=== PATIENT | male | born 1970 | race Caucasian/White ===

== ENCOUNTER 2022-04-29 18:08 | Emergency (ER) | payer BC ==
[~2022-04-29] VITALS: Ht 167.6 cm; Wt 72.6 kg
[2022-04-29 18:14] VITALS: BP_SYST 138
[2022-04-29 19:56] LABS: BASOPHILS % (AUTO) 0.2 % (0.0-2.0); HEMATOCRIT 44.4 % (36-54); HEMOGLOBIN 15.3 g/dL (14.0-18.0); LYMPHOCYTES # (AUTO) 0.8 K/uL (1.0-5.5); LYMPHOCYTES % (AUTO) 5.1 % (20.5-51.5); MEAN CORPUSCULAR HEMOGLOBIN 31 pg (27-31); MEAN CORPUSCULAR HGB CONC 35 % (32-36); MEAN CORPUSCULAR VOLUME 91 fL (79.0-98.0); MONOCYTES # (AUTO) 0.7 K/uL (0.0-1.0); MONOCYTES % (AUTO) 4.5 % (1.7-9.3); NEUTROPHILS # (AUTO) 13.5 K/uL (1.8-7.7); NEUTROPHILS % (AUTO) 90.2 % (40.0-70.0); PLATELET COUNT (AUTO) 191 K/uL (130-430); RED CELL DISTRIBUTION WIDTH 13.1 % (9.0-15.0)
[2022-04-29 20:07] LABS: ANION GAP 9 (5-15); CALCIUM 8.3 mg/dL (8.4-11.0); CHLORIDE 102 mmol/L (98-107); GLUCOSE 138 mg/dL (70-99); POTASSIUM 3.7 mmol/L (3.5-5.1); SODIUM SERUM 134 mmol/L (136-145); UREA NITROGEN, BLOOD 10 mg/dL (8-21)
[2022-04-29 20:09] LABS: GFR AFRICAN AMERICAN 101 mL/min (>90)
--- NOTE | 2022-04-29 20:21 | NUR ---
Placed in room 02 . Placed on manager salt, blood pressure machine and pulse oximeter. To gown for exam. Side rails up. Report given to CLINT Hall
[2022-04-29 20:24] LABS: ALANINE AMINOTRANSFERASE 58 U/L (12-78); ALBUMIN 3.7 g/dL (3.4-4.8); ASPARTATE AMINOTRANSFERASE 52 U/L (10-37); TOTAL BILIRUBIN 0.7 mg/dL (0.0-1.0)
[2022-04-29 20:26] LABS: ALCOHOL, BLOOD < 3 mg/dL (<10)
--- NOTE | 2022-04-29 20:41 | NUR ---
PATIENT BROUGHT IN ALS COMPLAINING OF AN EPISODE OF ALTERTED CONSCIOUSNESS THAT WAS BRIEF WITHOUT ALOC. hE REPORTS FEELING UNSTEADY, DIZZY AND NAUSEOUS. PATIENT STAES HE WAS OUTSIDE ALL DAY AND NOT EATEN THIS AM. PAIN 0/10. AOX4
--- NOTE | 2022-04-29 20:43 | NUR ---
ER Dr. LANZA at bedside examining patient.
[2022-04-29 20:44] VITALS: BP_SYST 134
--- NOTE | 2022-04-29 20:44 | NUR ---
Patient given written and verbal discharge instructions and verbalizes understanding. ER MD discussed with patient the results and treatment provided. Patient in stable condition. ID arm band removed. IV catheter removed intact and dressing applied, no active bleeding. NO RX given. Patient educated on pain management and to follow up with PMD. Pain Scale 0/10 Opportunity for questions provided and answered.
== END 2022-04-29 20:44 | disposition home or self-care (01) ==
LOC: SED 18:08
DX: R55 Syncope and collapse (principal); R42 Dizziness and giddiness; R11.0 Nausea
CPT/HCPCS: 36415; 80053; 84484; 85025; 93005; 99284; G0482